=== PATIENT | female | born 1980 | race Caucasian/White ===

== ENCOUNTER 2017-09-07 07:53 | Emergency (ER) | payer MEDICAID | END 2017-09-07 11:06 | disposition home or self-care (01) | LOC: FTE 07:53 | DX: H57.8 Other specified disorders of eye and adnexa (principal); J34.89 Other specified disorders of nose and nasal sinuses; E03.9 Hypothyroidism, unspecified | CPT/HCPCS: 99283; Z7502 ==

== ENCOUNTER 2018-08-26 08:42 | Emergency (ER) | payer MEDICAID ==
[2018-08-26] MEDS: DIAZEPAM 5 MG/ML SYG IM (10:23)
[2018-08-26] MEDS: KETOROLAC 30 MG INJ IM (10:23)
== END 2018-08-26 10:57 | disposition home or self-care (01) ==
LOC: FTE 08:42
DX: M54.2 Cervicalgia (principal); E03.9 Hypothyroidism, unspecified
CPT/HCPCS: 72040; 81025; 96372; 99284-25

== ENCOUNTER 2018-11-03 06:02 | Emergency (ER) | payer MEDICAID | END 2018-11-03 07:44 | disposition home or self-care (01) | LOC: FTE 06:02 | DX: H65.91 Unspecified nonsuppurative otitis media, right ear (principal); E03.9 Hypothyroidism, unspecified | CPT/HCPCS: 99283; Z7502 ==

== ENCOUNTER 2019-02-26 07:38 | Emergency (ER) | payer MEDICAID ==
[2019-02-26] MEDS: KETOROLAC 60 MG INJ IM (08:30)
== END 2019-02-26 08:38 | disposition home or self-care (01) ==
LOC: FTE 07:38
DX: M54.9 Dorsalgia, unspecified (principal); E03.9 Hypothyroidism, unspecified
CPT/HCPCS: 81025; 96372; 99284-25